=== PATIENT | male | born 1970 | race Caucasian/White ===

== ENCOUNTER 2020-03-02 12:02 | Emergency (ER) | payer SELFPAY ==
[2020-03-02] MEDS ORDERED: SODIUM CHLORIDE 0.9% 1000ML 1,000 ML IV STA ×2 (12:40)
[2020-03-02] MEDS ORDERED: SODIUM CHLORIDE 0.9% 1000ML 2,000 ML ONE (12:47)
[2020-03-02] MEDS ORDERED: MORPHINE SULFATE 2 MG/ML SYR 1ML IV STA (13:00)
[2020-03-02] MEDS ORDERED: ONDANSETRON HCL INJ 2MG/ML 2ML 2 MG/ML VIAL IV STA (13:00)
[2020-03-02 13:17] LABS: BASOPHILS # (AUTO) 0.1 (0.0-0.1); BASOPHILS % 0.4 % (0.0-1.0); EOSINOPHILS % 0.4 % (0.0-6.0); HEMATOCRIT 45.4 % (38.2-49.6); HEMOGLOBIN 15.8 g/dL (14.0-18.0); LYMPHOCYTES # (AUTO) 1.6 (1.0-3.2); LYMPHOCYTES % 14.6 % (18.0-39.1); MEAN CORPUSCULAR HEMOGLOBIN 28.9 pg (28-32); MEAN CORPUSCULAR HGB CONC 34.8 g/dL (31-35); MONOCYTES # (AUTO) 0.8 (0.2-0.8); MONOCYTES % 7.4 % (4.4-11.3); NEUTROPHILS # (AUTO) 8.7 (2.1-6.9); NEUTROPHILS % 76.8 % (38.7-80.0); PLATELET COUNT 269 x10e3/uL (140-360); RED BLOOD COUNT 5.47 x10e6/uL (4.3-5.7); RED CELL DISTRIBUTION WIDTH 11.9 % (11.7-14.4)
--- NOTE | 2020-03-02 13:22 | Emergency Department Note ---
History of Present Illnes History of Present Illness Chief Complaint: Diabetic Crisis History of Present Illness This is a 49 year old male arrives to the ED with concerns of high blood sugar, states he does not take insulin because he does not like taking can't afford it. Patient states he is compliant with metformin.. Historian: Patient Arrival Mode: [facility] Treatment FOAM CHARGER: IV Additional Treatment FOAM CHARGER: see ems report Onset (how long ago): week(s) Severity: mild Onset quality: gradual Duration (how long): week(s) Timing of current episode: constant Past Medical/Family History Physician Review I have reviewed the patient's past medical and family history. Any updates have been documented here. Past Medical History Recent Fever: No Clinical Suspicion of Infectio: No New/Unexplained Change in Ment: No Past Medical History: Hypertension, Diabetes, GERD, Hyperlipedemia, Chronic Back Pain Past Surgical History: None Social History Physically hurt or threatened: No Review of Systems Review of Systems Constitutional: Reports no symptoms EENTM: Reports no symptoms Cardiovascular: Reports no symptoms Respiratory: Reports no symptoms Gastrointestinal: Reports no symptoms Genitourinary: Reports no symptoms Musculoskeletal: Reports no symptoms Integumentary: Reports no symptoms Neurological: Reports no symptoms Psychological: Reports no symptoms Endocrine: Reports as per HPI, Reports excessive sweating, Reports increased thirst, Reports increased urination Hematological/Lymphatic: Reports no symptoms Physical Exam Related Data Allergies: Coded Allergies: No Known Allergies (Unverified , 03/02/20) Triage Vital Signs Vital Signs Date Time Temp Pulse Resp B/P (MAP) Pulse Ox O2 Delivery O2 Flow Rate FiO2 03/02/20 12:28 98.6 60 16 92/61 95 Room Air Vital signs reviewed: Yes Physical Exam CONSTITUTIONAL Constitutional: Present well-developed, Present well-nourished HENT HENT: Present normocephalic, Present atraumatic, Present oropharynx clear/moist, Present nose normal HENT L/R: Present left ext ear normal, Present right ext ear normal EYES Eyes: Reports PERRL, Reports conjunctivae normal NECK Neck: Present ROM normal PULMONARY Pulmonary: Present effort normal, Present breath sounds normal CARDIOVASCULAR Cardiovascular: Present regular rhythm, Present heart sounds normal, Present capillary refill normal, Present normal rate GASTROINTESTINAL Abdominal: Present soft, Present nontender, Present bowel sounds normal GENITOURINARY Genitourinary: Present exam deferred SKIN Skin: Present warm, Present dry MUSCULOSKELETAL Musculoskeletal: Present ROM normal NEUROLOGICAL Neurological: Present alert, Present oriented x 3, Present no gross motor or sensory deficits PSYCHOLOGICAL Psychological: Present mood/affect normal, Present judgement normal Results Laboratory Laboratory Laboratory Tests Test 03/02/20 13:05 Lab results reviewed: Yes Assessment & Plan Medical Decision Making MDM 65-year-old male arrives the ED with high blood sugar, hyperglycemia noted no evidence of anion gap metabolic acidosis. Patient given fluid resuscitation and insulin with improvement in blood glucose noted. Patient encouraged to take insulin, although medications are refilled at patient's request. Patient stable for discharge home. Assessment & Plan Final Impression: (1) Hyperglycemia Depart Disposition: HOME, SELF-CARE Last Vital Signs Date Time Temp Pulse Resp B/P (MAP) Pulse Ox O2 Delivery O2 Flow Rate FiO2 03/02/20 12:28 98.6 60 16 92/61 95 Room Air Home Meds Active Scripts Omeprazole (OMEPRAZOLE) 40 Mg Capsule.dr, 40 MG PO DAILY, #30 Prov:TUCKERR, AMBKYLAH, DO 03/02/20 Metformin Hcl (METFORMIN HCL) 500 Mg Tablet, 1000 MG PO BID, #60 TAB Prov:TOMHIR, AMBICA, DO 03/02/20 Lisinopril (LISINOPRIL) 10 Mg Tablet, 20 MG PO DAILY, #30 TAB Prov:TUCKERRYOBANY, DO 03/02/20 Glimepiride (GLIMEPIRIDE) 2 Mg Tablet, 2 MG PO DAILY, #30 TAB Prov:TUCKERR AMBKYLAH, DO 03/02/20 Atorvastatin Calcium (LIPITOR) 20 Mg Tablet, 20 MG PO DAILY, #30 TAB Prov:TUCKERRYOBANY, DO 03/02/20 Reported Medications Lisinopril (LISINOPRIL) 10 Mg Tablet, 10 MG PO DAILY, #30 TAB 03/02/20 Atorvastatin Calcium* (LIPITOR*) 10 Mg Tablet, 20 MG PO HS, TAB 03/02/20 Glimepiride (GLIMEPIRIDE) 2 Mg Tablet, 2 MG PO DAILY, TAB 03/02/20 Omeprazole (OMEPRAZOLE) 40 Mg Capsule.dr, 20 MG DAILY 03/02/20 Insulin Human Nph (HUMULIN N) 100 Units/Ml Ml, 20 BID 03/02/20 Metformin Hcl (METFORMIN HCL) 500 Mg Tablet, 1000 MG PO BID, #60 TAB 03/02/20 Medications in the ED Sodium Chloride 1,000 ml @ 0 mls/hr Q0M STAT IV Last administered on 03/02/20at 13:06; Admin Dose 999 MLS/HR; Start 03/02/20 at 12:40; Stop 03/02/20 at 12:41; Status DC Sodium Chloride 1,000 ml @ 0 mls/hr Q0M STAT IV ; Start 03/02/20 at 12:40; Stop 03/02/20 at 12:41; Status DC Sodium Chloride 2,000 ml @ ud STK-MED ONCE .ROUTE ; Start 03/02/20 at 12:47; Stop 03/02/20 at 12:41; Status DC Morphine Sulfate 2 mg NOW STAT IV ; Start 03/02/20 at 13:00; Stop 03/02/20 at 13:01; Status UNV Ondansetron HCl 4 mg NOW STAT IV ; Start 03/02/20 at 13:00; Stop 03/02/20 at 13:01; Status UNV YOBANY HOLLOWAY, Mar 02, 2020 13:21
[2020-03-02 13:39] LABS: ALBUMIN 3.7 g/dL (3.5-5.0); ANION GAP 15.4 mmol/L (8-16); CALCIUM 10.4 mg/dL (8.4-10.2); CREATININE, SERUM 3.8 mg/dL (0.72-1.25); POTASSIUM 4.4 mmol/L (3.5-5.1)
[2020-03-02 13:45] LABS: CREATINE KINASE MB 6.2 ng/mL (0-5.0)
[2020-03-02] MEDS ORDERED: INSULIN REGULAR, HUMAN 100 UNIT/1 ML 3ML VIAL ONE (14:14)
[2020-03-02] MEDS ORDERED: INSULIN REGULAR, HUMAN 100 UNIT/1 ML 3ML VIAL IV ONE (14:15)
[2020-03-02] MEDS ORDERED: METFORMIN HCL500 MG PO ×2 (15:40→16:51)
[2020-03-02] MEDS ORDERED: LIPITOR10 MG PO (16:07)
[2020-03-02] MEDS ORDERED: OMEPRAZOLE40 MG (16:07)
[2020-03-02] MEDS ORDERED: GLIMEPIRIDE2 MG PO ×2 (16:07→16:51)
[2020-03-02] MEDS ORDERED: HUMULIN N100 UNITS/ (16:07)
[2020-03-02] MEDS ORDERED: LISINOPRIL10 MG PO ×2 (16:07→16:51)
--- NOTE | 2020-03-02 16:07 | NUR ---
home meds obtained from patient
[2020-03-02] MEDS ORDERED: OMEPRAZOLE40 MG PO (16:51)
[2020-03-02] MEDS ORDERED: LIPITOR20 MG PO (16:51)
== END 2020-03-02 17:51 | disposition home or self-care (01) ==
LOC: ER 12:24
DX: E11.65 Type 2 diabetes mellitus with hyperglycemia (principal); I10 Essential (primary) hypertension; E78.5 Hyperlipidemia, unspecified; K21.9 Gastro-esophageal reflux disease without esophagitis; M54.9 Dorsalgia, unspecified; G89.29 Other chronic pain
CPT/HCPCS: 36415; 80053; 82550; 82553; 82948; 83690; 84484; 85025; 99284; J1817; J2270; J2405; J7030